=== PATIENT | male | born 2000 | race Caucasian/White ===

== ENCOUNTER → 2023-05-13 10:39 | Outpatient (CLI) | payer OTHER, SELFPAY | PROVIDERS: Visit Provider Nurse Practitioner Family | DX: J02.9 Acute pharyngitis, unspecified (principal) | CPT/HCPCS: 87070 ==

== ENCOUNTER → 2023-05-13 11:06 | Outpatient (CLI) | payer OTHER, SELFPAY ==
[2023-05-13 12:38] LABS: Monotest Positive (Negative)
== END ==
PROVIDERS: Referring Provider Nurse Practitioner Family; Visit Provider Nurse Practitioner Family
DX: J02.9 Acute pharyngitis, unspecified (principal); R59.1 Generalized enlarged lymph nodes
CPT/HCPCS: 36415; 86318; 87070